=== PATIENT | female | born 1955 | race Caucasian/White ===

== ENCOUNTER 2020-04-05 21:10 | Inpatient (IN) | payer MEDICARE, MEDICAID, SELFPAY ==
--- NOTE | 2020-04-05 | ECG_ITS ---
Test Reason : WEAKNESS Blood Pressure : / mmHG Vent. Rate : 129 BPM Atrial Rate : 129 BPM P-R Int : 146 ms QRS Dur : 066 ms QT Int : 282 ms P-R-T Axes : 083 070 -85 degrees QTc Int : 413 ms Sinus tachycardia Biatrial enlargement ST & T wave abnormality, consider inferolateral ischemia Abnormal ECG When compared to the previous EKG of 06 feb 2017, ST T changes noted Referred By: Generic ED Physician Electronically Signed By:ELLY GALINDO
[2020-04-05 21:17] VITALS: BP 105/61; BP 119/87; PULSE 127; PULSE 136; RESP 14; TEMP 36.4; O2SAT 93; BMI 11.3
--- NOTE | 2020-04-05 21:49 | CT_ITS ---
EXAMINATION: CT ABDOMEN AND PELVIS WITHOUT CONTRAST CLINICAL INFORMATION: Abdominal pain. Weakness. Diarrhea. COMPARISON: None TECHNIQUE: Multidetector volumetric imaging was performed from the superior aspect of the liver through the pubic symphysis. Sagittal and coronal reformatted images were obtained on the technologist's workstation. This CT examination was performed using dose optimization techniques as appropriate, variously including the following: *Automated exposure control *Adjustment of mA and/or kV according to patient size (this includes techniques or standardized protocols for targeted exams where dose is matched to indication/reason for exam; i.e. extremities or head) *Use of iterative reconstruction technique DLP: 188 mGy-cm FINDINGS: LUNG BASES: Marked emphysematous change of the lung bases. No infiltrate or pleural effusion. LIVER, GALLBLADDER, AND BILIARY TREE: The liver is normal in size, shape, and attenuation. No focal hepatic lesion or biliary ductal dilatation is present. Multiple small gallstones layering dependently in the gallbladder. No edema around the gallbladder or bile duct dilatation. PANCREAS: Unremarkable. SPLEEN: Unremarkable. ADRENAL GLANDS: Unremarkable. KIDNEYS AND URETERS: The kidneys are normal in size, shape, and attenuation. No hydronephrosis, hydroureter, or calculi seen. No perinephric stranding. BLADDER: Is distended. No bladder mass or calculus. No inflammation around the bladder. GASTROINTESTINAL TRACT: There are scattered diverticula of the sigmoid and descending colon. There is no diverticulitis. There is no bowel wall thickening /edema. There is no bowel obstruction. There is a moderate volume of stool in the colon. The appendix is nonvisualized. There is no inflammation the mesentery . The small bowel loops are unremarkable. The stomach is normal. There is no hiatal hernia. ABDOMINAL WALL: No significant hernia is appreciated. LYMPH NODES: Normal. VASCULAR: Atherosclerotic vascular calcifications of aorta. Vascular stent at the origin of the right renal artery PELVIC VISCERA: Unremarkable. OSSEOUS STRUCTURES: Degenerative spondylosis spine. Marked disc height narrowing L4-L5 with endplate sclerosis and spurring. Multilevel facet joint arthrosis at lower lumbar spine CT/CT abdomen pelvis wo con IMPRESSION: 1. No acute abnormality. There is mild diverticulosis of the colon but no acute changes of bowel. 2. Cholelithiasis. No acute change of the gallbladder wall polyp duct dilatation. 3. Marked emphysematous changes of lung bases.
--- NOTE | 2020-04-05 21:57 | ED.ABDPAIN ---
HPI - Abdominal Pain General Chief Complaint: Weakness Stated Complaint: WEAKNESS SINCE 03/26 Time Seen by Provider: 04/05/20 21:39 Source: patient Mode of arrival: EMS Limitations: no limitations History of Present Illness HPI narrative: 64 year old female presents the emergency department for evaluation of weakness abdominal pain and loss of appetite. Patient states that she has not been feeling well for about 4-5 months. She states however over the past 10 days she has been feeling very weak. She states that she has been having abdominal pain and chest pain. She states that she has a constant, cramping/stabbing pain in her lower abdomen. She points to her suprapubic area when asked to localize this pain. States the pain is moderate in intensity. She states that she also has an ?heartburn ?. She points to her mid sternum when asked to localize the pain. She describes the pain is a burning sensation which is [id number] in intensity. The pain is intermittent but she cannot describe the intervals. She states that she has had no appetite and has had very little food or fluid to drink over the past 24 hours.. She believes she has lost weight. She states she is unable to stand and walk without assistance due to her weakness. She denied fever, chills, cough, change in bowel movements, frequency, urgency or dysuria. Related Data Allergies Allergy/AdvReac Type Severity Reaction Status Date / Time No Known Allergies Allergy Unverified 01/13/20 16:38 [No Known Allergies*] Review of Systems Review of Systems Yes all other systems are reviewed and are negative Constitutional: Reports as per HPI Eyes: Reports as per HPI Reports as per HPI Cardiovascular: Reports as per HPI Respiratory: Reports as per HPI Gastrointestinal: Reports as per HPI Genitourinary: Reports as per HPI Musculoskeletal: Reports as per HPI Skin/Breast: Reports as per HPI Reports as per HPI and Reports Abnormal speech present Psychiatric: Reports as per HPI Allergic/Immunologic: Reports as per HPI Physical Exam Vital Signs: Vital Signs: Last Vital Signs Temp 97.5 F 04/05/20 21:17 Pulse 113 H 04/06/20 01:33 Resp 12 04/06/20 01:33 BP 122/83 04/06/20 01:33 Pulse Ox 99 04/06/20 01:33 Body Mass Index 11.3 Const: General: cooperative, no acute distress, alert and awake Nutritional Appearance: cachectic Orientation/consciousness: oriented to person and oriented to place Limitations: no limitations HENMT: Head: Yes normal to inspection, Yes normocephalic and Yes atraumatic Ears: external ears normal General nose exam: Normal external nose present Face and sinus: Yes normal facial exam Mouth: other (Dry mucous membrane) Throat: Yes posterior oropharynx normal Eyes: General: appearance normal, both eyes and all related structures Periorbital: periorbital findings normal Eyelids: Yes eyelids normal Conjunctivae: conjunctivae normal Sclerae: sclerae normal Corneas: corneas normal Pupils: Equal, round and reactive pupils present Direct Ophthalmoscopy: normal light reflex Neck: Neck: Yes normal visual inspection and Yes supple Lymphatic: no lymphadenopathy noted Chest: Chest palpation & inspection: normal inspection of the chest and normal palpation of entire chest wall Resp: Effort & Inspection: normal respiratory effort, abnormal respiratory pattern, no audible wheezes and no respiratory distress Auscultation: clear to auscultation bilaterally, no crackles, no rales, no rhonchi and no wheezes Cardio: Rate: regular rate Rhythm: regular rhythm Heart sounds: S1 normal heart sound present, S2 normal heart sound present and no murmurs GI: Inspection: No distended Palpation (GI): Soft to palpation, Tenderness to palpation present (GI) (Moderate suprapubic and left lower quadrant tenderness), no guarding and No hepatosplenomegaly present Auscultation: normal bowel sounds : General: Yes no CVA tenderness Back/Spine/Pelvis: Back: no CVA tenderness Skin: General skin exam: no rashes or lesions noted Lesions: no lesions Rashes: no rashes Wounds: no wounds Neuro: General: oriented to person and oriented to place Cranial nerves: Yes CN's II-XII intact bilaterally and Yes Equal, round and reactive pupils present Cognition (Neuro): normal cognition Speech: Abnormal speech present Motor exam (neuro): 5/5 motor strength present throughout Extrem: General: Yes normal to inspection, Yes full ROM, Yes no pedal edema and Yes no calf tenderness Psych: Appearance: grossly normal Mental Status: mental status grossly normal Speech and movement: Clear speech present Affect: normal affect Thought process: Normal thought process present Course Course Course Narrative: 64-year-old female who presents emergency department for evaluation weakness, abdominal pain, chest pain times 10 days with difficulty walking at home secondary to weakness. Physical examination revealed a cachectic woman who appears chronically ill. She did have abdominal tenderness with palpation in the suprapubic and left lower quadrant areas. I did order an abdominal and cardiac workup on this patient. The patient is tachycardic but I do not think she is septic at this time and her symptoms are more related to poor food fluid intake and failure to thrive. 0154: The patient's laboratory evaluation revealed macrocytic anemia with an H&H of 9.8 and 32 with an MCV of 107. The patient's bicarb was low at 16 with an anion gap of 26. Patient's lactic acid was elevated at 4.2. The patient was given 30 milliliters/kilogram normal saline bolus and lactic acid was repeated with slight improvement to 3.7. I suspect that this is again due to failure to thrive and starvation ketosis as opposed to sepsis. She was ordered to get 1/3 L of normal saline IV. I will discuss the patient's presentation with the covering hospitalist for admission and further evaluation of her failure to thrive and loss of appetite. The patient's CT scan and chest x-ray did not reveal any significant abnormalities or infectious source. 0220: I did discuss the patient's presentation with the covering hospitalis, Dr. Carter. The patient is a known drinker and does admit to drinking 4-6 alcoholic beverages per day. It is possible the patient may have alcoholic ketosis as well as a cause of her elevated lactic acid and decreased bicarb. The patient will be admitted to the hospitalist service and the patient will be placed on IMC to watch for signs of possible withdrawal. MDM - Abdominal Pain Lab Data Result diagrams: 04/05/20 22:30 04/05/20 22:30 Labs: Lab Results 04/05/20 04/05/20 04/05/20 Range/Units 22:30 22:30 22:30 WBC 9.0 (4.8-10.8) X10*3/uL RBC 3.00 L (4.20-5.50) X10*6/uL Hgb 9.8 L (12.0-16.0) g/dl Hct 32.1 L (37-47) % MCV 107.0 H (80-98) fL MCH 32.7 (27.0-33.0) pg MCHC 30.5 L (31.0-35.0) g/dl RDW 13.4 (11.0-16.0) % Plt Count 202 (160-400) X10*3/uL MPV 8.4 L (9.4-12.3) fL Immature Gran % (Auto) 1.0 H (0.0-0.4) % Neut % (Auto) 75.0 H (45-73) % Lymph % (Auto) 19.3 L (20-40) % Borden % (Auto) 4.3 (2-11) % Eos % (Auto) 0.1 (0-4) % Baso % (Auto) 0.3 (0-2) % Lymph # (Auto) 1.7 (1.2-4.9) X10*3/uL Borden # (Auto) 0.4 (0.1-1.2) X10*3/uL Eos # (Auto) 0.0 (0.0-0.4) X10*3/uL Baso # (Auto) 0.0 (0.0-0.2) X10*3/uL Abs Immat Gran (auto) 0.09 H (0.00-0.03) X10*3/uL Absolute Neuts (auto) 6.8 (2.0-8.3) X10*3/uL Absolute Nucleated RBC 0.000 (0.0-0.012) X10*3/uL Nucleated RBC % (auto) 0.0 (0.0-0.2) /100WBC Sodium 137 (135-145) mmol/L Potassium 3.8 (3.3-5.1) mmol/l Chloride 99 (96-108) mmol/L Carbon Dioxide 16 L (22-29) mmol/L Anion Gap 26 H (12-20) BUN 31 H (9-16) mg/dL Creatinine 1.75 H (0.5-1.4) mg/dL Estim Creat Clear Calc 16.7 Estimated GFR 29 Fasting Glucose 66 (60-99) mg/dL Lactic Acid 4.2 H* (0.5-2.0) mmol/L Lactic Acid Fup @ 2Hr (0.5-2.0) mmol/L Calcium 9.4 (8.4-10.2) mg/dL Total Bilirubin 0.5 (0.0-1.0) mg/dL AST 32 H (5-31) U/L ALT 11 (0-31) U/L Alkaline Phosphatase 158 H (39-117) U/L Troponin I High Sens (<3.5-17.0) ng/L Total Protein 6.3 L (6.5-8.0) g/dL Albumin 3.2 L (3.5-5.0) g/dL Lipase 12 (8-78) U/L Coronavirus (PCR) (Negative) Influenza Type A (PCR) (Negative) Influenza Type B (PCR) (Negative) RSV RNA Qual (PCR) (Negative) 04/05/20 04/05/20 04/06/20 Range/Units 22:30 22:45 00:50 WBC (4.8-10.8) X10*3/uL RBC (4.20-5.50) X10*6/uL Hgb (12.0-16.0) g/dl Hct (37-47) % MCV (80-98) fL MCH (27.0-33.0) pg MCHC (31.0-35.0) g/dl RDW (11.0-16.0) % Plt Count (160-400) X10*3/uL MPV (9.4-12.3) fL Immature Gran % (Auto) (0.0-0.4) % Neut % (Auto) (45-73) % Lymph % (Auto) (20-40) % Borden % (Auto) (2-11) % Eos % (Auto) (0-4) % Baso % (Auto) (0-2) % Lymph # (Auto) (1.2-4.9) X10*3/uL Borden # (Auto) (0.1-1.2) X10*3/uL Eos # (Auto) (0.0-0.4) X10*3/uL Baso # (Auto) (0.0-0.2) X10*3/uL Abs Immat Gran (auto) (0.00-0.03) X10*3/uL Absolute Neuts (auto) (2.0-8.3) X10*3/uL Absolute Nucleated RBC (0.0-0.012) X10*3/uL Nucleated RBC % (auto) (0.0-0.2) /100WBC Sodium (135-145) mmol/L Potassium (3.3-5.1) mmol/l Chloride (96-108) mmol/L Carbon Dioxide (22-29) mmol/L Anion Gap (12-20) BUN (9-16) mg/dL Creatinine (0.5-1.4) mg/dL Estim Creat Clear Calc Estimated GFR Fasting Glucose (60-99) mg/dL Lactic Acid (0.5-2.0) mmol/L Lactic Acid Fup @ 2Hr 3.7 H* (0.5-2.0) mmol/L Calcium (8.4-10.2) mg/dL Total Bilirubin (0.0-1.0) mg/dL AST (5-31) U/L ALT (0-31) U/L Alkaline Phosphatase (39-117) U/L Troponin I High Sens 21.2 H (<3.5-17.0) ng/L Total Protein (6.5-8.0) g/dL Albumin (3.5-5.0) g/dL Lipase (8-78) U/L Coronavirus (PCR) NEGATIVE (Negative) Influenza Type A (PCR) NEGATIVE (Negative) Influenza Type B (PCR) NEGATIVE (Negative) RSV RNA Qual (PCR) NEGATIVE (Negative) [facility] Past Medical History Attestation statement: The following information was validated with the patient. [facility] Narrative: The patient states that she lives with a friend and her friend helps care for her. She smokes 1/2 pack cigarettes per day. She drinks 4-6 alcoholic beverages per day, she denies drug use. Medical History Back pain COPD (chronic obstructive pulmonary disease) ETOH abuse HTN (hypertension) Social History Social History Alcohol intake: current Alcohol intake frequency: a few times a week Smoking Status: Current every day smoker Use of substances other than those prescribed or required for medical reasons: No Advance Directives: No Advance Directives Information Provided: Yes
[2020-04-05 22:00] VITALS: BP 152/71; PULSE 113; RESP 16; O2SAT 97
[2020-04-05] MEDS: Ketorolac Tromethamine 15 MG/ML VIAL IV (22:20)
[2020-04-05] MEDS: ondansetron HCL 4 MG/2 ML VIAL IVPUSH (22:20)
[2020-04-05] MEDS: 0.9 % Sodium Chloride 500 ML 1000 ML IV ×2 (22:21→23:39)
[2020-04-05 22:37] LABS: Basophils Percent Auto 0.3 % (0-2); Eosinophils Percent Auto 0.1 % (0-4); Hematocrit 32.1 % (37-47); Hemoglobin 9.8 g/dl (12.0-16.0); Imm Gran Abs Auto 0.09 X10*3/uL (0.00-0.03); Lymphocytes Absolute Auto 1.7 X10*3/uL (1.2-4.9); Lymphocytes Percent Auto 19.3 % (20-40); Mean Corpuscular HGB Conc 30.5 g/dl (31.0-35.0); Mean Corpuscular Hemoglobin 32.7 pg (27.0-33.0); Mean Platelet Volume 8.4 fL (9.4-12.3); Monocytes Absolute Auto 0.4 X10*3/uL (0.1-1.2); Monocytes Percent Auto 4.3 % (2-11); Neutrophils Absolute Auto 6.8 X10*3/uL (2.0-8.3); Platelet Count 202 X10*3/uL (160-400); Red Cell Distribution Width 13.4 % (11.0-16.0)
[2020-04-05 22:39] LABS: MANUAL DIFF FLAG NO
[2020-04-05 23:08] LABS: Alanine Aminotransferase 11 U/L (0-31); Albumin Level 3.2 g/dL (3.5-5.0); Alkaline Phosphatase 158 U/L (39-117); Anion Gap 26 (12-20); Aspartate Amino Transferase 32 U/L (5-31); Bilirubin Total 0.5 mg/dL (0.0-1.0); Blood Urea Nitrogen 31 mg/dL (9-16); Calcium 9.4 mg/dL (8.4-10.2); Carbon Dioxide 16 mmol/L (22-29); Chloride 99 mmol/L (96-108); Creatinine Clr Calc Pharmacy 16.7; Estimated Glomerular Filt Rate 29; Glucose Fasting 66 mg/dL (60-99); Lipase 12 U/L (8-78); Potassium 3.8 mmol/l (3.3-5.1); Sodium 137 mmol/L (135-145); Total Protein 6.3 g/dL (6.5-8.0)
[2020-04-05 23:16] LABS: Lactic Acid 4.2 mmol/L (0.5-2.0); Troponin-I High Sensitivity 21.2 ng/L (<3.5-17.0)
[2020-04-05 23:59] LABS: Influenza A PCR NEGATIVE (Negative); Influenza B PCR NEGATIVE (Negative); Resp Syncy Virus RNA Qual PCR NEGATIVE (Negative); SARS COV2 PCR INHOUSE NEGATIVE (Negative)
[2020-04-06] VITALS (20 sets, daily range): BP systolic 88–148; BP diastolic 50–97; PULSE 76–119; RESP 11–82; TEMP 29.3–35.7; O2SAT 90–100
--- NOTE | 2020-04-06 | CT_ITS ---
EXAMINATION: CT CHEST, ABDOMEN AND PELVIS WITHOUT CONTRAST CLINICAL INFORMATION: Reason for Exam sepsis COMPARISON: CT abdomen pelvis yesterday TECHNIQUE: Multidetector volumetric imaging was performed from the thoracic inlet through the pubic symphysis without IV contrast. Sagittal and coronal reformatted images were obtained on the technologist's workstation. This CT examination was performed using dose optimization techniques as appropriate, variously including the following: *Automated exposure control *Adjustment of mA and/or kV according to patient size (this includes techniques or standardized protocols for targeted exams where dose is matched to indication/reason for exam; i.e. extremities or head) *Use of iterative reconstruction technique DLP: 263 mGy-cm FINDINGS: CHEST: Lung: The lungs are clear without worrisome focal opacity or nodule. No consolidation is seen. A small cluster of micronodules present in the right lower lobe that may represent airway or inflammatory disease. Mediastinum: The esophagus is distended with fluid associated with a distended stomach as well. No mediastinal or hilar lymphadenopathy is seen. The heart is not enlarged. The patient is anemic as the blood in the cardiac chambers is of decreased attenuation when compared to the cardiac septum and myometrium. Pericardium/Pleura: Trace right pleural effusion may be present. No pleural mass or thickening. Chest Wall/Axilla: Unremarkable. ABDOMEN/PELVIS: Peritoneal Space: No significant free air or free fluid identified. Liver, Gallbladder, Biliary Tree: The liver is normal in size, shape, and attenuation. No focal hepatic lesion or biliary ductal dilatation is present. The gallbladder contains layering gallstones with a slightly thickened wall. No pericholecystic fluid collections seen. Given the picture of sepsis, would recommend evaluation of the gallbladder with ultrasound. Pancreas: Unremarkable Spleen: Unremarkable Adrenal Glands: Unremarkable Kidneys and Ureters: The right kidney is smaller than the left and there is a right renal artery stent in place. No hydronephrosis or renal calculi seen. Bladder: A Hua catheter along with air is in the decompressed bladder. Gastrointestinal Tract: The stomach remains markedly distended the esophagus is filled with fluid. Again seen are colonic diverticula without diverticulitis. The small and large bowel are unremarkable. The appendix is unremarkable. Abdominal Wall: No significant hernia is appreciated. Lymph Nodes: No retroperitoneal lymphadenopathy. Vascular: Calcific atherosclerotic changes present in the aorta and iliofemoral vessels without aneurysm.. The IVC is slitlike indicative of decreased volume status /hypotension. PELVIC VISCERA: There is a left adnexal cyst measuring 3.6 x 2.5 x 4.0 cm a retroverted uterus is present. OSSEUS STRUCTURES: Marked degenerative changes are noted in the spine at L4-L5. No bony destructive lesions are seen. CT/CT abdomen pelvis wo con IMPRESSION: 1. In terms of the source of sepsis, no finding is seen in the chest which could account for that and there is no new finding in the abdomen or pelvis since the study from less than 24 hours ago. There is a cyst in the left adnexa which was not mentioned on the prior report which may very well just be an ovarian cyst. 2. Continued distention of stomach and esophagus. 3.Cholelithiasis-ultrasound evaluation of the gallbladder may be useful to better assess disease. 4.Patient is anemic and may be hypovolemic. 5.Other incidental findings as described above.
--- NOTE | 2020-04-06 00:15 | XR_ITS ---
EXAMINATION: XR CHEST CLINICAL INFORMATION: Weakness, hypoxic, rule out pneumonia COMPARISON: 10/12/2015 TECHNIQUE: AP upright and lateral views of the chest FINDINGS: Lungs are hyperexpanded. EKG leads overlie the chest. No consolidation, pneumothorax, pleural effusion. Cardiac and mediastinal contours are normal. Osseous structures are osteopenic without acute abnormalities. XR/XR chest 2V IMPRESSION: No acute pulmonary findings.
[2020-04-06 00:35] LABS: Reflex Lactate? Lactic Acid Added
--- NOTE | 2020-04-06 00:44 | PC.NURSE ---
Patient pulled out her iv and MD aware.
--- NOTE | 2020-04-06 01:35 | PC.NURSE ---
PT ASKED TO PROVIDE A URINE SPECIMEN, PT DOES NOT FEEL THE URGE TO VOID.
[2020-04-06 01:52] LABS: ~Lactic Acid-LAB USE ONLY 3.7 mmol/L (0.5-2.0)
--- NOTE | 2020-04-06 02:00 | PC.NURSE ---
Patient's previous IV line pulled out of patient's arm. New peripheral iv placed in left forearm without incident. Patient continues to refuse to urinate at this point.
[2020-04-06] MEDS: 0.9 % Sodium Chloride 500 ML 1000 ML IV (02:15)
[2020-04-06 02:55] LABS: Reflex Lactate? 2 Y
[2020-04-06] MEDS: Ketorolac Tromethamine 15 MG/ML VIAL IV ×3 (05:09→15:53)
--- NOTE | 2020-04-06 06:03 | PM.IMHP ---
History of Present Illness Date of Service: 04/06/20 Chief Complaint: Weakness This is a 64-year-old female with past medical history of alcohol abuse as well as GERD who presents to the hospital with complaints of generalized weakness, inability to stand even due to muscle weakness, loss of muscle strength, and numbness in both hands. Patient reports that she has been progressively becoming weaker and weaker over the past 3-4 months but has gotten to the point where she can not even hold her cigarettes anymore. She reports that she has not been eating or drinking well, has been drinking alcohol daily about 6 hard liquor daily. She has no fever or chills, she feels that she is wasting away, she denies any fever or chills, denies any abdominal pain nausea or diarrhea. She has no urinary symptoms and no lower extremity edema. Patient denies any cough, shortness of breath, no sputum production. Her on arrival to the ED for a pulse rate of 127, temp of 97.5?, respiratory rate of 14, blood pressure 119/87. Labs are significant for normal WBC count, hemoglobin of 9.8, hematocrit of 32.1, MCV of 107.0, heart anion gap 26, BUN of 31, creatinine of 1.75, lactic acid of 4.2 that improved to 3.7 after IV fluids, AST of 32, alk-phos of 158, high sensitivity troponin of 21, albumin of 3.2, COVID as well as otherwise oral panel negative, Negative chest x-ray, negative abdominal CT Patient will be admitted for further management of acidosis as well as VALERIE Past medical history: Hypertension, GERD, alcohol abuse Surgical history: Denies Family history: Significant for alcohol abuse in her father Social history: Comes from home, lives with significant other, does not ambulate recently due to weakness, drinks about 4-6 hard liquor daily, she denies any history of withdrawal, smokes about half a pack per day, denies any illicit drug use Review of Systems Review of Systems: Yes all other systems are reviewed and are negative Neurologic: Reports as per HPI and Reports Abnormal speech present [facility] Medical History (Updated 04/06/20 @ 06:09 by Roseanne Carter MD) Back pain COPD (chronic obstructive pulmonary disease) ETOH abuse HTN (hypertension) Social History Alcohol intake: current Alcohol intake frequency: a few times a week Smoking Status: Current every day smoker Use of substances other than those prescribed or required for medical reasons: No Advance Directives: No Advance Directives Information Provided: Yes Meds Allergies Allergy/AdvReac Type Severity Reaction Status Date / Time No Known Allergies Allergy Unverified 01/13/20 16:38 [No Known Allergies*] Home Medications Medication Instructions Recorded Confirmed Type allopurinol 1 tab PO DAILY 04/06/20 04/06/20 History budesonide [Pulmicort Flexhaler] 90 mcg INHALATION DIRECTED 04/06/20 04/06/20 History oxycodone-acetaminophen 1 tab PO Q12H PRN 04/06/20 04/06/20 History tiotropium bromide [Spiriva with 1 cap INHALATION DAILY 04/06/20 04/06/20 History HandiHaler] Physical Exam Vital Signs and Narrative: Vital Signs: Last Vital Signs Temp 97.5 F 04/05/20 21:17 Pulse 118 H 04/06/20 04:00 Resp 11 L 04/06/20 04:00 BP 148/88 H 04/06/20 04:00 Pulse Ox 98 04/06/20 04:00 Body Mass Index 11.3 Const: Other: Significantly cachectic and ill-appearing General: cooperative and no acute distress Orientation/consciousness: patient oriented x3 Eyes: General: appearance normal, both eyes and all related structures Pupils: Equal, round and reactive pupils present Resp: Effort & Inspection: normal respiratory effort and able to speak in complete sentences Auscultation: clear to auscultation bilaterally Cardio: Rate: regular rate Rhythm: regular rhythm GI: Palpation (GI): Soft to palpation Auscultation: normal bowel sounds Skin: General skin exam: no rashes or lesions noted Neuro: General: patient oriented x3 Cranial nerves: Yes Equal, round and reactive pupils present Cognition (Neuro): normal cognition Speech: Abnormal speech present Extrem: General: Yes normal to inspection and Yes no pedal edema Results Labs CBC and Chem 7: 04/05/20 22:30 04/05/20 22:30 Labs: Laboratory Results - last 24 hr 04/05/20 04/05/20 04/05/20 22:30 22:30 22:30 MCV 107.0 H MCH 32.7 MCHC 30.5 L RDW 13.4 Plt Count 202 MPV 8.4 L Immature Gran % (Auto) 1.0 H Neut % (Auto) 75.0 H Lymph % (Auto) 19.[address] [place] % (Auto) 4.3 Eos % (Auto) 0.1 Baso % (Auto) 0.3 Lymph # (Auto) 1.7 [place] # (Auto) 0.4 Eos # (Auto) 0.0 Baso # (Auto) 0.0 Abs Immat Gran (auto) 0.09 H Absolute Neuts (auto) 6.8 Absolute Nucleated RBC 0.000 Nucleated RBC % (auto) 0.0 Anion Gap 26 H Estim Creat Clear Calc 16.7 Estimated GFR 29 Fasting Glucose 66 Lactic Acid 4.2 H* Lactic Acid Fup @ 2Hr Calcium 9.4 Total Bilirubin 0.5 AST 32 H ALT 11 Alkaline Phosphatase 158 H Troponin I High Sens Total Protein 6.3 L Albumin 3.2 L Lipase 12 Coronavirus (PCR) Influenza Type A (PCR) Influenza Type B (PCR) RSV RNA Qual (PCR) 04/05/20 04/05/20 04/06/20 22:30 22:45 00:50 MCV MCH MCHC RDW Plt Count MPV Immature Gran % (Auto) Neut % (Auto) Lymph % (Auto) [place] % (Auto) Eos % (Auto) Baso % (Auto) Lymph # (Auto) [place] # (Auto) Eos # (Auto) Baso # (Auto) Abs Immat Gran (auto) Absolute Neuts (auto) Absolute Nucleated RBC Nucleated RBC % (auto) Anion Gap Estim Creat Clear Calc Estimated GFR Fasting Glucose Lactic Acid Lactic Acid Fup @ 2Hr 3.7 H* Calcium Total Bilirubin AST ALT Alkaline Phosphatase Troponin I High Sens 21.2 H Total Protein Albumin Lipase Coronavirus (PCR) NEGATIVE Influenza Type A (PCR) NEGATIVE Influenza Type B (PCR) NEGATIVE RSV RNA Qual (PCR) NEGATIVE Imaging Radiologist's Impressions: Impressions Abdomen/Pelvis CT 04/05/20 21:49 IMPRESSION: 1. No acute abnormality. There is mild diverticulosis of the colon but no acute changes of bowel. 2. Cholelithiasis. No acute change of the gallbladder wall polyp duct dilatation. 3. Marked emphysematous changes of lung bases. Chest X-Ray 04/06/20 00:15 IMPRESSION: No acute pulmonary findings. Assessment and Plan (1) Adult failure to thrive: Status: Acute (2) Acute dehydration: Status: Acute (3) VALERIE (acute kidney injury): Status: Acute (4) HTN (hypertension): Status: Acute (5) COPD (chronic obstructive pulmonary disease): Status: Acute (6) ETOH abuse: Status: Acute (7) Lactic acidosis: Status: Acute This is a 64-year-old female who presents to the hospital with complaints of failure to thrive # VALERIE - most likely secondary to poor oral intake very poor p.o. intake Plan: - will start IV fluids - follow BMP # lactic acidosis - most likely secondary to starvation/alcoholic ketosis - patient continued to drink alcohol despite not eating or drinking any other liquids - has anion gap Plan: - Will start patient on IV fluids, thiamine and folic acid supplement - follow lactic acid # adult failure to thrive - patient eating, drinking well, muscle wastage - CT abdomen negative for any evidence of occult malignancy, chest x-ray negative, has no evidence of infection, denies any urinary symptoms - who appears significantly cachectic Plan: - will need evaluation by PT for most likely placement on discharge # alcohol abuse - with high potential for withdrawal - will start patient on low-dose phenobarbital taper # hypertension - does not use any BP medications at this time - will continue to monitor # COPD - no exacerbation - continue inhalers # history of GERD - has heartburn at this time, - will start her on Prilosec daily, Maalox p.r.n. DVT prophylaxis: Lovenox
[2020-04-06 07:55] LABS: Ethanol < 10 mg/dL
[2020-04-06 08:03] LABS: ~Lactic Acid-LAB USE ONLY 3.3 mmol/L (0.5-2.0)
[2020-04-06] MEDS: Thiamine HCL 100 MG TABLET PO (09:28)
[2020-04-06] MEDS: PHENobarbitaL sodium 65 MG/ML VIAL 190 MG IM (09:28)
[2020-04-06] MEDS: Folic Acid 1 MG TABLET PO (09:28)
[2020-04-06] MEDS: Lactated Ringers 1,000 ML 100 ML IVCONT ×2 (09:29→18:51)
[2020-04-06] MEDS: Enoxaparin Sodium 30 MG/0.3 ML SYRINGE SUBCUT (09:30)
[2020-04-06] MEDS: Omeprazole 20 MG CAPSULE.DR PO (09:30)
[2020-04-06] MEDS: 0.9 % Sodium Chloride Flush 3 ML SYRINGE IVFLUSH ×2 (09:30→15:53)
[2020-04-06] MEDS: PHENobarbitaL sodium 65 MG/ML VIAL 142 MG IM ×2 (11:26→15:54)
[2020-04-06] MEDS: Flu Vacc QS2020-21(6mos up)/PF 0.5 ML SYRINGE IM (11:27)
--- NOTE | 2020-04-06 15:33 | PC.NURSE ---
pt difficult to get temp - oral/temporal/axillary all not reading temp. rectal temp taken x2 was 91.3 - warm blankets applied. pt states feels fine - MD notified - told to put on bear hugger- getting onto to pt now. passing info onto oncoming RN
--- NOTE | 2020-04-06 15:41 | P.EN_ITS ---
Event Note Date of Service: 04/17/20 Event Note: Seen and examined, chart reviewed. labs reviewed. 64/f very cachec tic bmi 11, admitted due vasile, adult failure to thrive with severe protein calory malnutrition and now hypothermia with unclear reason. Hydrate, get tsh, warming blanket, rule out infection with UA
[2020-04-06 16:05] LABS: Thyroid Stimulating Hormone 1.06 uIU/mL (0.32-4.0)
[2020-04-06 18:46] LABS: Pt Ventilation O2% 2 L
[2020-04-06 18:54] LABS: Mean Corpuscular Hemoglobin 33.9 pg (27.0-33.0); Mean Corpuscular Volume 109.4 fL (80-98); Mean Platelet Volume 8.9 fL (9.4-12.3); Platelet Count 108 X10*3/uL (160-400); Red Blood Count 1.92 X10*6/uL (4.20-5.50); Red Cell Distribution Width 13.7 % (11.0-16.0); White Blood Count 15.1 X10*3/uL (4.8-10.8)
[2020-04-06 19:03] LABS: ABG PCO2 21 mmhg (32-45); Base Excess ABG -14.3; HCO3 ABG 12 mmol/l (22-26); PO2 ABG 126 mmhg (83-108); pH ABG 7.32 (7.35-7.45)
[2020-04-06 19:07] LABS: Hemoglobin 6.5 g/dl (12.0-16.0)
--- NOTE | 2020-04-06 19:21 | PC.NURSE ---
rectal temp 90.1, DR Blake was notified ,warming blanket applied at 15:30. Pt restless, eyes open, skin cool to touch , unable to get oxygen saturation d/t cool skin. ABG gases ordered ,CBC, urine culture.
[2020-04-06 19:23] LABS: Anion Gap 22 (12-20); Blood Urea Nitrogen 31 mg/dL (9-16); Calcium 7.5 mg/dL (8.4-10.2); Carbon Dioxide 12 mmol/L (22-29); Chloride 107 mmol/L (96-108); Creatinine Clr Calc Pharmacy 19.6; Estimated Glomerular Filt Rate 35; Glucose Random 60 mg/dL (60-115); Potassium 3.8 mmol/l (3.3-5.1); Sodium 137 mmol/L (135-145)
[2020-04-06 19:25] LABS: Glucose Urine UA NEG (NEG); Leukocyte Esterase Urine NEG (NEG); Nitrite Urine NEG (NEG); PH 5.5 (5.0-8.0); Urine Blood 2+ (NEG); Urine Ketones NEG (NEG); Urine Protein TRACE MG/DL (NEG-TRACE)
[2020-04-06 19:27] LABS: Appearance Urine CLEAR; Color Urine YELLOW
--- NOTE | 2020-04-06 19:28 | PC.NURSE ---
h/h 6.5/ 21.0 dr Viveros notified , ICU physician WINNIE came to evaluate pt .
[2020-04-06 19:33] LABS: Bacteria Urine TRACE /LPF; WBC Urine 0 /HPF (0-4)
[2020-04-06] MEDS: cefEPime HCl 1 GM in 0.9 % Sodium Chloride 50 ML IV (19:50)
--- NOTE | 2020-04-06 20:00 | W.PM.CCCN ---
Documented by User: LILLIE Gill 04/06/20 22:59 History of Present Illness Data of Consult Service Date: 04/06/20 Requesting physician: Roseanne Carter Primary Care Provider: Unknown Physician HPI Reason for consult: hypothermia, dropping hemoglobin Patient is a 64-year-old female past medical history of ETOH abuse, adult FTT, VALERIE, HTN, lactic acidosis who was admitted yesterday for acute dehydration and FTT. Since her admission, her core body temperature has dropped from normal to 90.0 F and her hemoglobin has dropped from 9.8 to 6.5, her WBC has also increased from 9.0 to 15.1, TSH 1.06, AST 32, ALT11, Alk Phos 158, VBG noted to be 7.32/21/126/12/99 with -14.3. Patient is making urine and is holding her blood pressures within the normal range, last reading was noted to be 125/78. Heart rate 86, respiratory rate 18, last O2 sat was 100% on room air. Review of Systems Constitutional: Constitutional: Reports lethargy Cardiovascular: Cardiovascular: Reports no additional cardiovascular complaints and Denies dyspnea Respiratory: Respiratory: Denies dyspnea Gastrointestinal: Gastrointestinal: Reports abdominal pain Neurologic: Reports system reviewed and no additional complaints, except as documented Endocrine: Endocrine: Reports no additional endocrine complaints Allergic/Immunologic: Allergic/Immunologic: Reports no additional allergic/immunologic complaints PMF Past Medical History Medical History Back pain COPD (chronic obstructive pulmonary disease) ETOH abuse HTN (hypertension) Social History Social History Household Members: Friend(s) Household Members Other:: Deshawn Housing: House Do you presently have visiting nurse or other home services: No Alcohol intake: current Alcohol intake frequency: a few times a week Smoking Status: Current every day smoker Tobacco Type: Cigarette Packs Per Day: 0.5 Cigarettes Per Day: 10.0 Years Smoked: 40 Smoked in Last 30 Days: Yes Patient Interested in Nicotine Replacement: No Patient Given Instructions on How to Stop Smoking: Yes Date Education Initiated: 04/06/20 Second Hand Smoke Exposure: Yes Use of substances other than those prescribed or required for medical reasons: No Have you been hit, kicked, punched, or otherwise hurt by someone within the past year? If so, by whom?: No Do you feel safe in your current relationship?: Yes Is there a partner from a previous relationship who is making you feel unsafe now?: No Are you made to feel afraid or neglected: No Spiritual Healthcare Practices: no Religion Healthcare Practices: no Cultural Healthcare Practices: no Advance Directives: No Advance Directives Information Provided: Yes Do you have thoughts of harming others: None Do you have a plan to hurt others: No Plan Recently lost weight without trying: Yes Meds Allergies Allergy/AdvReac Type Severity Reaction Status Date / Time No Known Allergies Allergy Unverified 01/13/20 16:38 [No Known Allergies*] Home Medications Medication Instructions Recorded Confirmed Type allopurinol 1 tab PO DAILY 04/06/20 04/06/20 History budesonide [Pulmicort Flexhaler] 2 inh INHALATION BID 04/06/20 04/06/20 History oxycodone-acetaminophen 1 tab PO Q12H PRN 04/06/20 04/06/20 History tiotropium bromide [Spiriva with 1 cap INHALATION DAILY 04/06/20 04/06/20 History HandiHaler] Physical Exam Vital Signs: Vital Signs: Last Vital Signs Temp 90.6 F L 04/06/20 19:21 Pulse 86 04/06/20 18:14 Resp 18 04/06/20 18:14 BP 125/78 04/06/20 18:14 Pulse Ox 100 04/06/20 12:00 Body Mass Index 11.3 Const: General: no acute distress and tired appearing Nutritional Appearance: cachectic HENMT: Head: Yes normal to inspection, Yes normocephalic and Yes atraumatic General nose exam: Normal external nose present Face and sinus: Yes normal facial exam Eyes: General: appearance normal, both eyes and all related structures Pupils: Equal, round and reactive pupils present EOM: EOMs intact bilaterally Neck: Neck: Yes normal visual inspection and Yes supple Resp: Effort & Inspection: normal respiratory effort Auscultation: clear to auscultation bilaterally Cardio: Rate: regular rate Rhythm: regular rhythm GI: Palpation (GI): Soft to palpation and Tenderness to palpation present (GI) suprapubicly Auscultation: Hypoactive bowel sounds present : Other: brown present Neuro: Cranial nerves: Yes Equal, round and reactive pupils present Results Labs CBC & Chem 7: 04/07/20 00:30 04/06/20 18:45 Labs: Short CBC 04/05/20 04/06/20 Range/Units 22:30 18:45 WBC 9.0 15.1 H (4.8-10.8) X10*3/uL Hgb 9.8 L 6.5 L* D (12.0-16.0) g/dl Hct 32.1 L 21.0 L* D (37-47) % Plt Count 202 108 L D (160-400) X10*3/uL BMP 04/05/20 04/06/20 22:30 18:45 Sodium 137 137 Potassium 3.8 3.8 Chloride 99 107 Carbon Dioxide 16 L 12 L BUN 31 H 31 H Creatinine 1.75 H 1.49 H Calcium 9.4 7.5 L D Liver Function 04/05/20 Range/Units 22:30 Total Bilirubin 0.5 (0.0-1.0) mg/dL AST 32 H (5-31) U/L ALT 11 (0-31) U/L Alkaline Phosphatase 158 H (39-117) U/L Albumin 3.2 L (3.5-5.0) g/dL Urine 04/06/20 Range/Units 19:10 Urine Color YELLOW Urine Appearance CLEAR Urine pH 5.5 (5.0-8.0) Ur Specific [place] 1.020 (1.005-1.025) Urine Protein TRACE (NEG-TRACE) MG/DL Urine Glucose (UA) NEG (NEG) MG/DL Assessment and Plan (1) Hemoglobin low: Status: Acute repeat CBC, draw PT/INR, PTT, fibrinogen and CT of chest, abdomen and pelvis to look for retroperitoneal blood or metastatic disease. Give RBC if repeat consistent with anemia (2) Hypothermia: Qualifiers: Encounter type: initial encounter Qualified Code(s): T68.XXXA - Hypothermia, initial encounter Status: Acute continue bear hugger, warm blood prior to transfusing, get random cortisol level, if <10 give stress dose sterioids, decadron. (3) Abdominal pain: Status: Acute CT of abdomen/pelvis Documented by User: Arcenio Carrillo MD 04/29/20 13:47 PMF Past Medical History Medical History Back pain COPD (chronic obstructive pulmonary disease) ETOH abuse HTN (hypertension) Social History Social History Household Members: Friend(s) Household Members Other:: Deshawn Housing: House Do you presently have visiting nurse or other home services: No Alcohol intake: current Alcohol intake frequency: a few times a week Smoking Status: Current every day smoker Tobacco Type: Cigarette Packs Per Day: 0.5 Cigarettes Per Day: 10.0 Years Smoked: 40 Smoked in Last 30 Days: Yes Patient Interested in Nicotine Replacement: No Patient Given Instructions on How to Stop Smoking: Yes Date Education Initiated: 04/06/20 Second Hand Smoke Exposure: Yes Use of substances other than those prescribed or required for medical reasons: No Have you been hit, kicked, punched, or otherwise hurt by someone within the past year? If so, by whom?: No Do you feel safe in your current relationship?: Yes Is there a partner from a previous relationship who is making you feel unsafe now?: No Are you made to feel afraid or neglected: No Spiritual Healthcare Practices: no Religion Healthcare Practices: no Cultural Healthcare Practices: no Advance Directives: No Advance Directives Information Provided: Yes Do you have thoughts of harming others: None Do you have a plan to hurt others: No Plan Recently lost weight without trying: Yes Meds Allergies Allergy/AdvReac Type Severity Reaction Status Date / Time No Known Allergies Allergy Unverified 01/13/20 16:38 [No Known Allergies*] Home Medications Medication Instructions Recorded Confirmed Type allopurinol 1 tab PO DAILY 04/06/20 04/06/20 History budesonide [Pulmicort Flexhaler] 2 inh INHALATION BID 04/06/20 04/06/20 History oxycodone-acetaminophen 1 tab PO Q12H PRN 04/06/20 04/06/20 History tiotropium bromide [Spiriva with 1 cap INHALATION DAILY 04/06/20 04/06/20 History HandiHaler] Results Labs CBC & Chem 7: 04/07/20 00:30 04/06/20 18:45
--- NOTE | 2020-04-06 20:04 | PM.EVENT ---
Event Note Date of Service: 04/06/20 Event Note: This is a 64-year-old female who was admitted to the hospital this morning for VALERIE, failure to thrive. Patient is also significantly cachectic and malnourished. Patient has been progressively more hypothermic, with temperature now 90.0, she has lactic acidosis, hemoglobin dropped from 9 this morning to 6 point 5 with no source bleed. She is also lethargic after receiving phenobarbital for alcohol withdrawal. Other hemodynamics within normal range. PH of 3.2, with no CO2 retention. Spoke to the ICU MELY, she value at the patient, discussed the case with the elevator operator freight and a decision was made to transfer patient as an IMC bed to the ICU so she can receive 1 unit of warmed PRBC. Will obtain CBC, PT INR, fibrinogen, CT abdomen, pelvis, and chest stat prior to sending to the ICU. Therefore patient is physically being moved to the ICU but will remain an IMC patient unless clinically deteriorates.
[2020-04-06] MEDS: Morphine Sulfate 2 MG/ML CARTRIDGE IVPUSH (21:13)
[2020-04-06] MEDS: ondansetron HCL 4 MG/2 ML VIAL IVPUSH (21:15)
[2020-04-06 21:49] LABS: Mean Corpuscular HGB Conc 30.5 g/dl (31.0-35.0); Mean Corpuscular Hemoglobin 33.1 pg (27.0-33.0); Mean Corpuscular Volume 108.8 fL (80-98); Mean Platelet Volume 9.1 fL (9.4-12.3); NRBC Pct Auto 0.3 /100WBC (0.0-0.2); Platelet Count 113 X10*3/uL (160-400); Red Blood Count 1.81 X10*6/uL (4.20-5.50); Red Cell Distribution Width 13.6 % (11.0-16.0); White Blood Count 9.9 X10*3/uL (4.8-10.8)
[2020-04-06 21:54] LABS: Hematocrit 19.7 % (37-47)
[2020-04-06 21:58] LABS: Fibrinogen 238 MG/DL (259-690); INTERNATIONAL NORM RATIO 1.2 (0.9-1.1); Prothrombin Time 14.3 SEC (10.8-13.0)
--- NOTE | 2020-04-06 22:02 | PC.NURSE ---
Pt transfered to ICU room 253, CTscan of abdomen was done prior going to ICU. Pt awake ,restless, no s/s of bleeding. This casualty underwriter called pt's mother Georgie and notified her about pt being transfered to ICU.Pt's mother is the only contact center analyst on the chart.Pt's mother stated that Norris Bacon is the pt's brother and can be contacted at [phone]
[2020-04-06 22:14] LABS: Band Neutrophils Percent 43 % (3-5); Lymphocytes Absolute Manual 0.1 X10*3/uL (0.6-4.8); Lymphocytes Percent Manual 1 % (20-40); Metamyelocytes Absolute 0.2 X10*3/uL; Metamyelocytes Percent 2 %; Neutrophils Absolute Manual 9.6 X10*3/uL (2.2-7.9); Neutrophils Percent Manual 54 % (45-73); Platelet Estimate DECREASED (NORMAL); Platelet Morphology Comment NORM; RBC Morphology NORMAL
[2020-04-06] MEDS: vancomycin HCL 500 MG in 0.9 % Sodium Chloride 100 ML 110 MG IV (22:20)
[2020-04-06 22:26] LABS: Lactic Acid 2.9 mmol/L (0.5-2.0)
[2020-04-06 23:44] LABS: Reflex Lactate? Lactic Acid Added
--- NOTE | 2020-04-07 | ECG_ITS ---
Test Reason : EKG CHANGE Blood Pressure : / mmHG Vent. Rate : 098 BPM Atrial Rate : 098 BPM P-R Int : 184 ms QRS Dur : 108 ms QT Int : 378 ms P-R-T Axes : 086 -67 093 degrees QTc Int : 482 ms Normal sinus rhythm Left axis deviation Low voltage QRS Possible Anterolateral infarct , age undetermined Abnormal ECG When compared to the previous EKG of 05 apr 2020, significant changes noted. Referred By: Roseanne Carter Electronically Signed By:ELLY GALINDO
--- NOTE | 2020-04-07 00:04 | PC.NURSE ---
PT TRANSFERRED FROM [facility] [place] WITH THE INTENT OF USING FLUID/BLOOD WARMER D/T HYPOTHERMIA. PT IS AWAKE/RESTLESS/FREQUENT REPOSITIONING FOR COMFORT. SHE IS GUARDED WITH HER CONVERSATION AND IS CONFUSED TO ON GOING HOSPITAL EVENTS. SHE HAS A FRAIL/CACHETIC/DEBILITATED APPEARANCE. SHE IS WEAK AND FATIGUED. SHE HAS C/O 10/10 EPIGASTRIC PAIN. SHE IS TACHYPNEIC RR 30-34. UNABLE TO GET SAO2 D/T VASOCONSTRICTION. ON ARRIVAL 85.3 IS CORE TEMP. LUNGS ARE COARSE WITH DIFFUSE CRACKLES IN THE BASES. ECG DISPLAYS SR-ST SBP SOFT 80-90S MMG. ABDOMEN FLAT/FIRM/TENDER. NUÑEZ EMPTIED FOR 500 ML OF BROWN URINE. I. KIM HUGGER WARMING BLANKET APPLIED I. MEDICATED WITH MORPHINE 2 MG IVP FOR 10/10 EPIGASTRIC PAIN I. ZOFRAN 4 MG IVP NOR NAUSEA I. IV FLUID WARMER IMPLEMENTED WITH 1000 LR AT 100ML/HR I. SUPPLEMENTAL O2 3LPM I. HGB/HCT 6.5/21 I. TYPE AND SCREEN AND TRANSFUSE 1 UX OF RBCS I. LACTATE 2.[address] FONG
[2020-04-07 00:52] LABS: Hemoglobin 8.1 g/dl (12.0-16.0); Mean Corpuscular HGB Conc 31.2 g/dl (31.0-35.0); Mean Corpuscular Hemoglobin 33.2 pg (27.0-33.0); Mean Corpuscular Volume 106.6 fL (80-98); Mean Platelet Volume 9.1 fL (9.4-12.3); NRBC Pct Auto 0.2 /100WBC (0.0-0.2); Platelet Count 106 X10*3/uL (160-400); Red Blood Count 2.44 X10*6/uL (4.20-5.50); Red Cell Distribution Width 15.5 % (11.0-16.0); White Blood Count 13.1 X10*3/uL (4.8-10.8)
[2020-04-07] MEDS: Morphine Sulfate 2 MG/ML CARTRIDGE IVPUSH (01:04)
[2020-04-07 01:06] VITALS: BP 99/54; PULSE 96; RESP 40; TEMP 36
[2020-04-07 01:11] LABS: ~Lactic Acid-LAB USE ONLY 5.3 mmol/L (0.5-2.0)
[2020-04-07 01:31] LABS: Glucose Urine UA 100 MG/DL (NEG); Leukocyte Esterase Urine NEG (NEG); Nitrite Urine POS (NEG); Specific Gravity - Urine 1.025 (1.005-1.025); UACC Culture Trigger YES; Urine Blood 3+ (NEG); Urine Ketones 5 MG/DL (NEG); Urine Protein 2+ MG/DL (NEG-TRACE)
[2020-04-07 01:43] LABS: Appearance Urine CLOUDY; Color Urine BROWN
[2020-04-07 02:16] LABS: Amorphous Sediment Urine 3+ /LPF; Hyaline Casts Urine 0-2 /LPF; Mucus Urine TRACE /LPF; RBC Urine 0-2 /HPF (0); Renal Epithelial Cells Urine 1+ /LPF; Squamous Epithelial Cell Urine TRACE /LPF; UACC CULT YES; WBC Urine 0 /HPF (0-4)
[2020-04-07 02:19] VITALS: BP 93/60; PULSE 101; RESP 38; TEMP 36.7
[2020-04-07] MEDS: 0.9 % Sodium Chloride Flush 3 ML SYRINGE IVFLUSH (02:22)
[2020-04-07 02:35] LABS: Band Neutrophils Percent 23 % (3-5); Lymphocytes Absolute Manual 0.1 X10*3/uL (0.6-4.8); Lymphocytes Percent Manual 1 % (20-40); Metamyelocytes Absolute 0.3 X10*3/uL; Metamyelocytes Percent 2 %; Neutrophils Absolute Manual 12.7 X10*3/uL (2.2-7.9)
[2020-04-07 02:36] LABS: Burr Cells 1+; Microcytosis 1+; Platelet Estimate SLIGHTLY DECREASED (NORMAL); Platelet Morphology Comment NORMAL; RBC Morphology NOTED; Toxic Vacuolation PRESENT
[2020-04-07 02:43] LABS: Neutrophils Percent Manual 74 % (45-73)
[2020-04-07 02:45] LABS: Reflex Lactate? 2 Y
[2020-04-07 03:26] VITALS: BP 78/58; PULSE 101; RESP 35
[2020-04-07] MEDS: Lactated Ringers 1,000 ML 100 ML IVCONT ×3 (03:52→03:53)
[2020-04-07] MEDS: Naloxone HCl 0.4 MG/ML VIAL IVPUSH (03:52)
[2020-04-07 03:57] VITALS: BP 99/57; PULSE 91; RESP 36
--- NOTE | 2020-04-07 03:59 | PC.NURSE ---
pt experiencing sudden onset of neurological and hemodynamic changes. pt is obtunded/her pupils are dilated at 6-7mm. she is nonverbal. she will wigle fingers to command. she is grossly palllid. resp effort is shallow/tachypneic. sudden onset hypotension sbp dropping into the 70s mmhg and further dropping to point that pulse is only obtained with dopplar. ecg shows sr-st with st elevations noted in several leads. dr lundberg summoned to bedside. 1. narcan 0.4 mg ivp 2. 2000 ml lr wide open 3. stat 12 lead 4. stat abg 3. post abg 1 amp [id number]. called cousin enedelia and mother wilfrido no one answered calls. messages were left on each of their phones to return our calls back immediately.
[2020-04-07 04:23] LABS: Glucose, Whole Blood 13 mg/dL (60-115)
[2020-04-07 04:23] LABS: Glucose, Whole Blood 14 mg/dL (60-115)
[2020-04-07 04:26] LABS: Pt Ventilation O2% 5 L
[2020-04-07 04:27] LABS: ABG PCO2 59 mmhg (32-45)
[2020-04-07 04:28] LABS: Base Excess ABG -19.6; HCO3 ABG 12 mmol/l (22-26); Oxygen Saturation ABG 36.1 %
[2020-04-07] MEDS: Magnesium Sulfate/H2O 2 GM/50 ML PIGGYBACK IV (04:28)
[2020-04-07 04:32] LABS: pH ABG 6.92 (7.35-7.45)
[2020-04-07 04:33] LABS: PO2 ABG 32 mmhg (83-108)
[2020-04-07 04:49] LABS: Glucose, Whole Blood 242 mg/dL (60-115)
[2020-04-07] MEDS: Lactated Ringers 500 ML 999 ML IVCONT (06:19)
--- NOTE | 2020-04-07 08:39 | PM.DS ---
DS: Providers Provider Date of admission: 04/06/20 06:30 Primary care physician: Unknown Physician DS: Diagnosis Discharge Diagnosis (1) Hemoglobin low: Status: Acute (2) Hypothermia: Status: Acute (3) Abdominal pain: Status: Acute DS: Medications Discharge Medications Home Medications: Home Medications Medication Instructions Recorded Confirmed allopurinol 1 tab PO DAILY 04/06/20 04/06/20 budesonide [Pulmicort Flexhaler] 2 inh INHALATION BID 04/06/20 04/06/20 oxycodone-acetaminophen 1 tab PO Q12H PRN 04/06/20 04/06/20 tiotropium bromide [Spiriva with 1 cap INHALATION DAILY 04/06/20 04/06/20 HandiHaler] DS: Summary Hospital Course Hospital Course: This is a 64-year-old female with past medical history of alcohol abuse as well as GERD who presents to the hospital with complaints of generalized weakness, inability to stand even due to muscle weakness, loss of muscle strength, and numbness in both hands. Patient reports that she has been progressively becoming weaker and weaker over the past 3-4 months but has gotten to the point where she can not even hold her cigarettes anymore. She reports that she has not been eating or drinking well, has been drinking alcohol daily about 6 hard liquor daily. She has no fever or chills, she feels that she is wasting away, she denies any fever or chills, denies any abdominal pain nausea or diarrhea. She has no urinary symptoms and no lower extremity edema. Patient denies any cough, shortness of breath, no sputum production. Her on arrival to the ED for a pulse rate of 127, temp of 97.5?, respiratory rate of 14, blood pressure 119/87. Labs are significant for normal WBC count, hemoglobin of 9.8, hematocrit of 32.1, MCV of 107.0, heart anion gap 26, BUN of 31, creatinine of 1.75, lactic acid of 4.2 that improved to 3.7 after IV fluids, AST of 32, alk-phos of 158, high sensitivity troponin of 21, albumin of 3.2, COVID as well as otherwise oral panel negative,Negative chest x-ray, negative abdominal CT Hospital course: During course of hospitalization and shortly after admission. Patient became increasingly hypothermic. Repeat labs also revealed significant dropped in hemoglobin. Patient was evaluated by ICU. Unfortunately she continued to decline and family opted for comfort measures only and she . See additional documentation from Dr. Viveros for additional events leading to . Time Spent with Patient Time attestation: Total time spent providing and/or coordinating discharge services: Physical Exam Vital Signs: Vital Signs: Last Vital Signs Temp 98.1 F 04/07/20 02:19 Pulse 91 04/07/20 03:57 Resp 36 H 04/07/20 03:57 BP 99/57 L 04/07/20 03:57 Pulse Ox 100 04/06/20 12:00 Body Mass Index 11.3 DS: Data Data Completed and Pending Labs on day of discharge: 04/05/20 ECG 12 lead EKG Stat 04/05/20 21:28 EKG Documentation DIRECTED 04/05/20 21:49 CT abdomen pelvis wo con Stat 0.9 % Sodium Chloride [Ns] 500 ml IV 1,000 mls/hr 04/05/20 21:55 ondansetron HCL [Zofran] 4 mg IVPUSH ONCE ONE 04/05/20 22:30 Complete Blood Count Auto Diff Stat Comprehensive [place]. Panel Fast Stat Lactic Acid Stat Lipase Stat Troponin-I High Sensitivity Stat 04/05/20 22:45 SARS-CoV2/FLU/RSV Stat 04/05/20 23:39 0.9 % Sodium Chloride [Ns] 500 ml IV 1,000 mls/hr 04/06/20 CT abdomen pelvis wo con Stat CT chest wo con Stat 04/06/20 00:15 XR chest 2V Stat 04/06/20 00:50 ~Lactic Acid-LAB USE ONLY Stat 04/06/20 01:50 0.9 % Sodium Chloride [Ns] 500 ml IV 1,000 mls/hr 04/06/20 02:28 Add Laboratory Test Stat 04/06/20 03:03 Transfer Order Routine 04/06/20 03:04 Code Status Routine 04/06/20 07:26 Ethanol Stat Thyroid Stimulating Hormone Stat ~Lactic Acid-LAB USE ONLY Stat 04/06/20 08:18 Consult Rx EtOH Phenob Dosing 1 each MISCELLANE ONCE ONE 04/06/20 08:36 PHENobarbitaL sodium 190 mg IM ONCE ONE 04/06/20 09:00 Tiotropium [place] [Spiriva] 1 puff INHALE RDAILY 12/10/20 09:24 Flu Vacc [id number](6mos up)/PF [Fluarix Quad ] 0.5 ml IM .ONCE ONE 04/06/20 10:00 Enoxaparin Sodium [Lovenox] 30 mg SUBCUT Q24H 04/06/20 12:00 PHENobarbitaL sodium 142 mg IM Q3H 04/06/20 15:33 Add Laboratory Test Routine 04/06/20 18:39 Arterial Blood Gas Routine 04/06/20 18:45 Basic Metabolic Panel Stat 04/06/20 19:24 UA ClnCatch+Micro w/rflx Cult Stat 04/06/20 19:45 cefEPime HCl [Maxipime] 1 gm IV .STK-MED ONE 04/06/20 21:24 Red Blood Cells Stat Type and Screen Stat Complete Blood Count Man Dif Stat Fibrinogen Stat Lactic Acid Stat Prothrombin Time INR Stat 04/06/20 22:14 vancomycin HCL 500 mg IV .STK-MED ONE 04/06/20 23:44 ~Lactic Acid-LAB USE ONLY Stat 04/07/20 ECG 12 lead EKG Routine 04/07/20 00:30 Complete Blood Count Man Dif Stat 04/07/20 03:12 Naloxone HCl [Narcan] 2 mg .ROUTE .STK-MED ONE 04/07/20 03:13 Naloxone HCl [Narcan] 0.4 mg .ROUTE .STK-MED ONE 04/07/20 03:22 Naloxone HCl [Narcan] 0.4 mg IVPUSH STAT STA 04/07/20 03:48 Magnesium Sulfate/H2O 2 gm in 50 ml IV ONCE 04/07/20 03:50 EKG Documentation DIRECTED 04/07/20 03:53 Sodium Bicarbonate 8.4% 50 meq IVPUSH ONCE ONE 04/07/20 03:57 Sodium Bicarbonate 8.4% 50 meq .ROUTE .STK-MED ONE 04/07/20 04:00 Lactated Ringers [Lr] 500 ml IVCONT 999 mls/hr 04/07/20 04:17 Arterial Blood Gas Routine Glucose, Whole Blood Routine 04/07/20 04:18 Dextrose 50 % [D50] 25 gm .ROUTE .STK-MED ONE 04/07/20 04:19 Glucose, Whole Blood Routine 04/07/20 04:46 Glucose, Whole Blood Routine 04/07/20 05:13 Sodium Bicarbonate 8.4% 50 meq .ROUTE .STK-MED ONE 04/07/20 06:25 Sodium Bicarbonate 8.4% 50 meq IVPUSH ONCE ONE Laboratory Last Values WBC 13.1 X10*3/uL (4.8-10.8) H 04/07/20 00:30 RBC 2.44 X10*6/uL (4.20-5.50) L D 04/07/20 00:30 Hgb 8.1 g/dl (12.0-16.0) L D 04/07/20 00:30 Hct 26.0 % (37-47) L D 04/07/20 00:30 MCV 106.6 fL (80-98) H 04/07/20 00:30 MCH 33.2 pg (27.0-33.0) H 04/07/20 00:30 MCHC 31.2 g/dl (31.0-35.0) 04/07/20 00:30 RDW 15.5 % (11.0-16.0) 04/07/20 00:30 Plt Count 106 X10*3/uL (160-400) L 04/07/20 00:30 MPV 9.1 fL (9.4-12.3) L 04/07/20 00:30 Immature Gran % (Auto) Cancelled 04/07/20 00:30 Neut % (Auto) Cancelled 04/07/20 00:30 Lymph % (Auto) Cancelled 04/07/20 00:30 [place] % (Auto) Cancelled 04/07/20 00:30 Eos % (Auto) Cancelled 04/07/20 00:30 Baso % (Auto) Cancelled 04/07/20 00:30 Lymph # (Auto) Cancelled 04/07/20 00:30 [place] # (Auto) Cancelled 04/07/20 00:30 Eos # (Auto) Cancelled 04/07/20 00:30 Baso # (Auto) Cancelled 04/07/20 00:30 Abs Immat Gran (auto) Cancelled 04/07/20 00:30 Absolute Neuts (auto) Cancelled 04/07/20 00:30 Absolute Nucleated RBC 0.020 X10*3/uL (0.0-0.012) H 04/07/20 00:30 Nucleated RBC % (auto) 0.2 /100WBC (0.0-0.2) 04/07/20 00:30 Neutrophils % (Manual) 74 % (45-73) H 04/07/20 00:30 Band Neutrophils % 23 % (3-5) H 04/07/20 00:30 Lymphocytes % (Manual) 1 % (20-40) L 04/07/20 00:30 Metamyelocytes % 2 % 04/07/20 00:30 Abs Neuts (Manual) 12.7 X10*3/uL (2.2-7.9) H 04/07/20 00:30 Lymphocytes # (Manual) 0.1 X10*3/uL (0.6-4.8) L 04/07/20 00:30 Metamyelocytes # 0.3 X10*3/uL 04/07/20 00:30 Toxic Vacuolation PRESENT 04/07/20 00:30 Platelet Estimate SLIGHTLY DECREASED (NORMAL) 04/07/20 00:30 Plt Morphology Comment NORMAL 04/07/20 00:30 RBC Morphology NOTED 04/07/20 00:30 Microcytosis 1+ 04/07/20 00:30 [place] Cells 1+ 04/07/20 00:30 PT 14.3 SEC (10.8-13.0) H 04/06/20 21:24 INR 1.2 (0.9-1.1) H 04/06/20 21:24 Fibrinogen 238 MG/DL (259-690) L 04/06/20 21:24 ABG pH 6.92 (7.35-7.45) L* 04/07/20 04:17 ABG pCO2 59 mmhg (32-45) H 04/07/20 04:17 ABG pO2 32 mmhg (83-108) L* 04/07/20 04:17 ABG HCO3 12 mmol/l (22-26) L 04/07/20 04:17 ABG O2 Saturation 36.1 % 04/07/20 04:17 ABG Base Excess -19.6 04/07/20 04:17 Oxygen Given 5 L 04/07/20 04:17 Sodium 137 mmol/L (135-145) 04/06/20 18:45 Potassium 3.8 mmol/l (3.3-5.1) 04/06/20 18:45 Chloride 107 mmol/L (96-108) 04/06/20 18:45 Carbon Dioxide 12 mmol/L (22-29) L 04/06/20 18:45 Anion Gap 22 (12-20) H 04/06/20 18:45 BUN 31 mg/dL (9-16) H 04/06/20 18:45 Creatinine 1.49 mg/dL (0.5-1.4) H 04/06/20 18:45 Estim Creat Clear Calc 19.6 04/06/20 18:45 Estimated GFR 35 04/06/20 18:45 POC Glucose 242 mg/dL (60-115) H 04/07/20 04:46 Random Glucose 60 mg/dL (60-115) 04/06/20 18:45 Fasting Glucose 66 mg/dL (60-99) 04/05/20 22:30 Lactic Acid 2.9 mmol/L (0.5-2.0) H* 04/06/20 21:24 Lactic Acid Fup @ 2Hr 5.3 mmol/L (0.5-2.0) H* 04/07/20 00:30 Lactic Acid Fup @ 4Hr 3.3 mmol/L (0.5-2.0) H* 04/06/20 07:26 Calcium 7.5 mg/dL (8.4-10.2) L D 04/06/20 18:45 Total Bilirubin 0.5 mg/dL (0.0-1.0) 04/05/20 22:30 AST 32 U/L (5-31) H 04/05/20 22:30 ALT 11 U/L (0-31) 04/05/20 22:30 Alkaline Phosphatase 158 U/L (39-117) H 04/05/20 22:30 Troponin I High Sens 21.2 ng/L (<3.5-17.0) H 04/05/20 22:30 Total Protein 6.3 g/dL (6.5-8.0) L 04/05/20 22:30 Albumin 3.2 g/dL (3.5-5.0) L 04/05/20 22:30 Lipase 12 U/L (8-78) 04/05/20 22:30 TSH 1.06 uIU/mL (0.32-4.0) 04/06/20 07:26 Urine Color BROWN 04/07/20 01:15 Urine Appearance CLOUDY 04/07/20 01:15 Urine pH 5.0 (5.0-8.0) 04/07/20 01:15 Ur Specific [place] 1.025 (1.005-1.025) 04/07/20 01:15 Urine Protein 2+ MG/DL (NEG-TRACE) H 04/07/20 01:15 Urine Glucose (UA) 100 MG/DL (NEG) H 04/07/20 01:15 Urine Ketones 5 MG/DL (NEG) 04/07/20 01:15 Urine Blood 3+ (NEG) H 04/07/20 01:15 Urine Nitrite POS (NEG) H 04/07/20 01:15 Ur Leukocyte Esterase NEG (NEG) 04/07/20 01:15 Urine RBC 0-2 /HPF (0) 04/07/20 01:15 Urine WBC 0 /HPF (0-4) 04/07/20 01:15 Urine WBC Clumps [employer]IAN [employer] 04/07/20 01:15 Ur Squamous Epith Cells TRACE /LPF 04/07/20 01:15 Ur Renal Epithelial Cell 1+ /LPF 04/07/20 01:15 Urine Crystals [employer]ICIAN [employer] 04/07/20 01:15 [place] Biurate Crystals [employer]O TECHNICIAN MECH[employer]IC 04/07/20 01:15 Calcium Carbonate Cryst [employer] TECHNICIAN MECH[employer]IC 04/07/20 01:15 Calcium Phosphate Cryst [employer] TECHNICIAN MECH[employer]IC 04/07/20 01:15 Calcium Oxalate Crystal [employer] TECHNICIAN MECH[employer]IC 04/07/20 01:15 Leucine Crystals [employer] TECHNICIAN MECH[employer]IC 04/07/20 01:15 Cystine Crystals [employer] TECHNICIAN MECH[employer]IC 04/07/20 01:15 Uric Acid Crystals [employer] TECHNICIAN MECH[employer]IC 04/07/20 01:15 Triple Phos Crystals [employer] TECHNICIAN MECH[employer]IC 04/07/20 01:15 Tyrosine Crystals [employer] TECHNICIAN MECH[employer]IC 04/07/20 01:15 Other Crystals [employer]NICIAN [employer]CH[employer]IC 04/07/20 01:15 Amorphous Sediment 3+ /LPF 04/07/20 01:15 Urine Bacteria NONE /LPF 04/07/20 01:15 Epithelial Casts [employer]IAN [employer] 04/07/20 01:15 Fatty Casts [employer] TE[employer]ICIAN [employer]CH[employer] 04/07/20 01:15 Hyaline Casts 0-2 /LPF 04/07/20 01:15 Granular Casts 5-9 /LPF 04/07/20 01:15 Waxy Casts [employer]ICIAN ME[employer] 04/07/20 01:15 RBC Casts [employer] TECHNICIAN MECH[employer]IC 04/07/20 01:15 WBC Casts [employer] TECHNICIAN MECH[employer]IC 04/07/20 01:15 Other Casts [employer] TECHNICIAN MECHANIC 04/07/20 01:15 Urine Mucus TRACE /LPF 04/07/20 01:15 Urine Trichomonas [employer]ICIAN [employer] 04/07/20 01:15 Urine Yeast [employer]IAN [employer] 04/07/20 01:15 Urine Sperm [employer]ICIAN [employer] 04/07/20 01:15 Ur Oval Fat Bodies [employer]ICIAN MECH[employer] 04/07/20 01:15 Ethyl Alcohol < 10 mg/dL 04/06/20 07:26 Coronavirus (PCR) NEGATIVE (Negative) 04/05/20 22:45 Influenza Type A (PCR) NEGATIVE (Negative) 04/05/20 22:45 Influenza Type B (PCR) NEGATIVE (Negative) 04/05/20 22:45 RSV RNA Qual (PCR) NEGATIVE (Negative) 04/05/20 22:45 Blood Type O Positive 04/06/20 21:24 Antibody Screen NEGATIVE 04/06/20 21:24 Crossmatch See Detail 04/06/20 21:24 Preliminary micro results at discharge 04/05/20 22:45 Blood Culture - Preliminary Blood - Venous No growth after 24 hours. 04/05/20 22:30 Blood Culture - Preliminary Blood - Venous No growth after 24 hours. Discharge Plan Discharge Date/Time: 04/07/20 06:45 Patient Disposition: Discharge Medications: No Action allopurinol 100 mg tablet 1 tab PO DAILY RF: 0 oxycodone-acetaminophen 5-325 mg tablet 1 tab PO Q12H PRN (Reason: pain) RF: 0 Spiriva with HandiHaler 18 mcg capsule, w/inhalation device 1 cap inhalation DAILY RF: 0 Pulmicort Flexhaler 90 mcg/actuation aerosol powdr breath activated 2 inh inhalation BID RF: 0 Discharge Date/Time: 04/07/20 10:33
== END 2020-04-07 10:33 | disposition expired | DRG 947 ==
LOC: HO.ED 04-06 02:22 → HO.IMC 04-06 07:25 → HO.ICU 04-06 20:00
PROVIDERS: Admitting Provider Internal Medicine; Emergency Provider Emergency Medicine Emergency Medical Services; Visit Provider Internal Medicine
DX: R68.0 Hypothermia, not associated with low environmental temperature (principal); E43 Unspecified severe protein-calorie malnutrition; N17.9 Acute kidney failure, unspecified; E87.2 Acidosis; Z68.1 Body mass index [BMI] 19.9 or less, adult; F10.139 Alcohol abuse with withdrawal, unspecified; F17.210 Nicotine dependence, cigarettes, uncomplicated; K21.9 Gastro-esophageal reflux disease without esophagitis; E86.0 Dehydration; I10 Essential (primary) hypertension; J44.9 Chronic obstructive pulmonary disease, unspecified; Z20.828 Contact with and (suspected) exposure to other viral communicable diseases; Z23 Encounter for immunization; Z71.6 Tobacco abuse counseling; Z79.891 Long term (current) use of opiate analgesic; Z79.899 Other long term (current) drug therapy
CPT/HCPCS: 0241U; 36415; 36600; 71046; 71250; 74176; 80048; 80053; 80320; 81001; 82533; 82803; 82947; 83605; 83690; 84443; 84484; 85007; 85025; 85027; 85060; 85384; 85610; 86850; 86900; 86901; 86920; 86923; 87040; 87086; 90686; 93005; 96374; 96375; 99283; 99285; C1758; J0692; J1650; J1885; J2270; J2405; J2560; J3370; J3475; P9016